=== PATIENT | female | born 1975 | race Caucasian/White ===

== ENCOUNTER 2018-12-25 17:11 | Emergency (ER) | payer SELFPAY ==
[~2018-12-25] VITALS: Ht 157.5 cm; Wt 86.4 kg
[2018-12-25 17:18] VITALS: BP 121/70
== END 2018-12-25 18:30 | disposition left against medical advice (07) ==
LOC: EMS 17:12
DX: Z53.21 Procedure and treatment not carried out due to patient leaving prior to being seen by health care provider (principal)

== ENCOUNTER 2022-10-02 17:18 | Emergency (ER) | payer OTHER | END 2022-10-02 20:03 | disposition left against medical advice (07) | LOC: EMS 17:18 | DX: Z45.321 Encounter for adjustment and management of cochlear device (principal) | CPT/HCPCS: 99281; Z7502 ==

== ENCOUNTER 2023-02-11 09:05 | Emergency (ER) | payer OTHER ==
[~2023-02-11] VITALS: Ht 157.5 cm; Wt 95.5 kg
[2023-02-11 09:24] VITALS: BP 124/93; PULSE 86; RESP 18; TEMP 98.6
[2023-02-11 09:30] LABS: COVID AG,FIA SOURCE NASAL SWAB
== END 2023-02-11 10:08 | disposition home or self-care (01) ==
LOC: EMS 09:07
DX: F10.20 Alcohol dependence, uncomplicated (principal); D64.9 Anemia, unspecified; B19.20 Unspecified viral hepatitis C without hepatic coma; Z20.822 Contact with and (suspected) exposure to COVID-19; Z98.890 Other specified postprocedural states
CPT/HCPCS: 99283

== ENCOUNTER 2023-02-18 13:00 | Emergency (ER) | payer OTHER ==
[~2023-02-18] VITALS: Ht 157.5 cm; Wt 100.0 kg
[2023-02-18] MEDS ORDERED: THIA100T80 PO (13:14)
[2023-02-18] MEDS ORDERED: CHLO25CA5 PO (13:14)
[2023-02-18] MEDS ORDERED: DIAZEPAM 5 MG/ML 2 ML SYRINGE IVP ONE ×2 (13:30→15:30)
[2023-02-18] MEDS ORDERED: SODIUM CHLORIDE 0.9% 1,000 ML IV ONE (13:30)
[2023-02-18 13:46] LABS: EOSINOPHILS % (AUTO) 0.5 % (1.0-6.0); HEMATOCRIT 30.4 % (36-46); HEMOGLOBIN 9.4 g/dL (12.0-16.0); LYMPHOCYTES # (AUTO) 1.2 K/uL (1.0-4.8); LYMPHOCYTES % (AUTO) 30.3 % (22.0-44.0); MEAN CORPUSCULAR HEMOGLOBIN 23.6 pg (26.0-34.0); MEAN CORPUSCULAR HGB CONC 30.8 G/dL (31.0-37.0); MEAN CORPUSCULAR VOLUME 76 fL (80-100); MONOCYTES # (AUTO) 0.4 K/uL (0.1-1.0); MONOCYTES % (AUTO) 9.7 % (2.0-9.0); NEUTROPHILS # (AUTO) 2.3 K/uL (1.8-7.7); NEUTROPHILS % (AUTO) 57.5 % (40.0-70.0); PLATELET COUNT (AUTO) 119 K/uL (150-450); RED BLOOD CELL COUNT(AUTO) 3.98 MIL/uL (4.00-5.20)
[2023-02-18 14:06] LABS: ALANINE AMINOTRANSFERASE 63 U/L (12-78); ALBUMIN 3.7 g/dL (3.4-5.0); ALKALINE PHOSPHATASE 77 U/L (46-116); ANION GAP 10 mmol/L (8-16); ASPARTATE AMINOTRANSFERASE 82 U/L (15-37); BILIRUBIN,TOTAL 0.5 mg/dL (0.1-1.0); CALCIUM, TOTAL 8.3 mg/dL (8.8-10.5); CARBON DIOXIDE 28 mmol/L (22-29); CHLORIDE 100 mmol/L (98-107); GLUCOSE,RANDOM 108 mg/dL (70-110); LIPASE 17 U/L (16-77); POTASSIUM 3.5 mmol/L (3.5-5.1); SODIUM SERUM 138 mmol/L (136-145)
[2023-02-18 14:20] LABS: CREATININE 0.49 mg/dL (0.60-1.30); GLOMERULAR FILTR. RATE CALC > 60 mL/min (>60); TOTAL PROTEIN, SERUM 9.5 g/dL (6.4-8.2)
[2023-02-18 15:30] VITALS: BP 172/93; PULSE 105; RESP 18; TEMP 98.3
== END 2023-02-18 16:30 | disposition short-term general hospital (02) ==
LOC: EMS 13:04
DX: E86.0 Dehydration (principal); F10.239 Alcohol dependence with withdrawal, unspecified; R79.89 Other specified abnormal findings of blood chemistry; D64.9 Anemia, unspecified; Z98.890 Other specified postprocedural states
CPT/HCPCS: 99291; 96374; 96361; 80053; 83690; 84484; 85025; 36415; 71045; 93005; 96376; G0480; J1885; J7030

== ENCOUNTER 2023-04-12 11:46 | Emergency (ER) | payer OTHER ==
[~2023-04-12] VITALS: Ht 157.5 cm; Wt 90.9 kg
[~2023-04-12 11:46] MED LIST: CHLO25CA5 PO; THIA100T80 PO
[2023-04-12 11:51] VITALS: TEMP 98.1
[2023-04-12 12:13] VITALS: BP 126/76; PULSE 115; RESP 18
[2023-04-12 12:39] LABS: BASOPHILS % (AUTO) 1.7 % (0.0-2.0); EOSINOPHILS % (AUTO) 0 % (1.0-6.0); HEMATOCRIT 34.9 % (36-46); HEMOGLOBIN 11.1 g/dL (12.0-16.0); LYMPHOCYTES # (AUTO) 1.3 K/uL (1.0-4.8); MEAN CORPUSCULAR HEMOGLOBIN 25.4 pg (26.0-34.0); MEAN CORPUSCULAR HGB CONC 31.8 G/dL (31.0-37.0); MEAN CORPUSCULAR VOLUME 80 fL (80-100); MONOCYTES # (AUTO) 0.3 K/uL (0.1-1.0); MONOCYTES % (AUTO) 5.9 % (2.0-9.0); NEUTROPHILS # (AUTO) 2.9 K/uL (1.8-7.7); NEUTROPHILS % (AUTO) 63.4 % (40.0-70.0); PLATELET COUNT (AUTO) 213 K/uL (150-450); RED BLOOD CELL COUNT(AUTO) 4.37 MIL/uL (4.00-5.20); RED CELL DISTRIBUTION WIDTH 24.2 % (11.5-14.5); WHITE BLOOD COUNT (AUTO) 4.6 K/uL (4.5-11.0)
[2023-04-12 12:45] LABS: ANION GAP 12 mmol/L (8-16); CALCIUM, TOTAL 8.5 mg/dL (8.8-10.5); CARBON DIOXIDE 27 mmol/L (22-29); CHLORIDE 100 mmol/L (98-107); CREATININE 0.45 mg/dL (0.60-1.30); GLOMERULAR FILTR. RATE CALC > 60 mL/min (>60); GLUCOSE,RANDOM 110 mg/dL (70-110); POTASSIUM 3.5 mmol/L (3.5-5.1); SODIUM SERUM 139 mmol/L (136-145); UREA NITROGEN, BLOOD 6 mg/dL (7-18)
[2023-04-12 12:50] LABS: ALANINE AMINOTRANSFERASE 34 U/L (12-78); ALBUMIN 3.4 g/dL (3.4-5.0); ALKALINE PHOSPHATASE 79 U/L (46-116); ASPARTATE AMINOTRANSFERASE 45 U/L (15-37); BILIRUBIN,TOTAL 0.4 mg/dL (0.1-1.0); TOTAL PROTEIN, SERUM 7.8 g/dL (6.4-8.2)
[2023-04-12 13:11] LABS: ALCOHOL, BLOOD (SERUM) 333 mg/dL (0-10)
[2023-04-12 13:29] LABS: RBC MORPHOLOGY COMMENT ABNORMAL RBC MORPH
== END 2023-04-12 13:30 | disposition left against medical advice (07) ==
LOC: EMS 11:59
DX: F10.20 Alcohol dependence, uncomplicated (principal); Z98.890 Other specified postprocedural states; Z88.8 Allergy status to other drugs, medicaments and biological substances
CPT/HCPCS: 99284; 80053; 85025; G0480

== ENCOUNTER 2025-06-03 17:19 | Emergency (ER) | payer OTHER ==
[~2025-06-03] VITALS: Ht 157.5 cm; Wt 99.0 kg
[2025-06-03 17:43] VITALS: TEMP 98.6
[2025-06-03] MEDS: AMOX TR/POT CLAV 875 MG/125 MG TABLET PO ONE (18:59)
[2025-06-03] MEDS: BACITRACIN 0.9 GM PACKET OINTMENT TP ONE (19:00)
[2025-06-03] MEDS: IBUPROFEN 600 MG TABLET PO ONE (19:00)
[2025-06-03] MEDS: LIDOCAINE 1% 10 ML VIAL ID ONE (19:01)
[2025-06-03] MEDS ORDERED: IBUP-1492 PO (20:00)
[2025-06-03] MEDS ORDERED: AMOX-457 PO (20:00)
[2025-06-03 20:30] VITALS: BP 113/75; PULSE 86; RESP 18; O2SAT 99
== END 2025-06-03 20:55 | disposition home or self-care (01) ==
LOC: EMS 18:26
DX: S51.812A Laceration without foreign body of left forearm, initial encounter (principal); S51.852A Open bite of left forearm, initial encounter; Z88.5 Allergy status to narcotic agent; Z98.84 Bariatric surgery status; W54.0XXA Bitten by dog, initial encounter; Y93.89 Activity, other specified; Y92.89 Other specified places as the place of occurrence of the external cause; Y99.8 Other external cause status
CPT/HCPCS: 99283; 12002; J3490